=== PATIENT | male | born 1990 | race Two or more races ===

== ENCOUNTER 2016-11-10 22:48 | Emergency (ER) | payer SELFPAY ==
--- NOTE | ~2016-11-10 | CR230 ---
[facility]. [facility] A Service of [facility] & [facility] RADIOLOGY TEXT RESULTS PATIENT: JESSICA ROBLEDO LOCATION: SED : 91 UNIT #: [id number] AGE: [address]: Diogo De Paz SEX: M ORDER DR: [id number] [place] [id number] E MR#: [id number] Acc #: [id number] NAME: JESSICA ROBLEDO : 1990 SEX: M STUDY DATE/TIME: 11/10/2016 22:53 UNIT: SED ROOM: STUDY DESCRIPTION: CR Shoulder Min 2 View Rt Attending Physician: Diogo De Paz P.A.-C. Ordering Physician: Diogo De Paz P.A.-C. Primary Care Physician: Primary Care Physician No MEDICAL IMAGING REPORT This report is preliminary unless electronic signature is present. EXAM Right shoulder 11/10/2016 (2253 hours) HISTORY 26-year-old male in the ED with right shoulder pain after injury playing basketball today. Suspected shoulder dislocation. Past history of shoulder dislocation. TECHNIQUE Two-view right shoulder series. FINDINGS The exam shows anterior subcoracoid right shoulder dislocation. No visible fracture. Remainder of the exam is negative. IMPRESSION Anterior subcoracoid dislocation of the right shoulder. Dictated by... Isidro Martínez M.D. THIS IS AN ELECTRONICALLY VERIFIED REPORT Isidro Martínez M.D. at 11/11/2016 5:59 AM JOSEW/chelsi TD: 11/11/2016 00:21 JOB #: [id number] MEDICAL IMAGING REPORT Page 1 of 1
--- NOTE | ~2016-11-10 | CR230 ---
[facility]. [facility] A Service of [facility] & [facility] RADIOLOGY TEXT RESULTS PATIENT: JESSICA ROBLEDO LOCATION: SED : 91 UNIT #: [id number] AGE: [address]: Diogo De Paz SEX: M ORDER DR: [id number] [place] [id number] E MR#: [id number] Acc #: [id number] NAME: JESSICA ROBLEDO : 1990 SEX: M STUDY DATE/TIME: 11/10/2016 23:06 UNIT: SED ROOM: STUDY DESCRIPTION: CR Shoulder Min 2 View Rt Attending Physician: Diogo De Paz P.A.-C. Ordering Physician: Diogo De Paz P.A.-C. Primary Care Physician: Primary Care Physician No MEDICAL IMAGING REPORT This report is preliminary unless electronic signature is present. EXAM Postreduction right shoulder 11/10/2016 HISTORY Shoulder dislocation today. Postreduction series. TECHNIQUE Two-view right shoulder series was obtained following reduction in the ED. FINDINGS The exam shows successful reduction of previously demonstrated anterior shoulder dislocation. No visible fracture. Dictated by... Isidro Martínez M.D. THIS IS AN ELECTRONICALLY VERIFIED REPORT Isidro Martínez M.D. at 11/11/2016 5:59 AM ERWIN/chelsi TD: 11/11/2016 00:22 JOB #: [id number] MEDICAL IMAGING REPORT Page 1 of 1
[~2016-11-10 22:48] MED LIST: ACETAMINOPHEN PO; ALBUTEROL17 G1 IH; ALBUTEROL17 GM INH; BENZONATATE PO; CLARITIN10 M2 PO; IBUPROFEN800 MG PO; NO MEDICATIONS; NORCO1 TAB 10/3 DOB; PHENERGAN25 M1 PO; PREDNISONE50 MG PO; SUDAFED PO; ZITHROMAX PO
== END 2016-11-11 00:06 | disposition home or self-care (01) ==
LOC: SED 22:48
DX: S43.004A Unspecified dislocation of right shoulder joint, initial encounter (principal); Z88.2 Allergy status to sulfonamides; Z88.0 Allergy status to penicillin; Y93.67 Activity, basketball; Y92.830 Public park as the place of occurrence of the external cause
CPT/HCPCS: 29105; 73030; 96374; 96375; 99284